=== PATIENT | male | born 1955 | race Caucasian/White ===

== ENCOUNTER 2022-11-17 12:42 | Emergency (ER) | payer MEDICARE, OTHER ==
[~2022-11-17] VITALS: Ht 185.4 cm; Wt 90.7 kg
--- NOTE | 2022-11-17 12:54 | NUR ---
CALLED FOR TRIAGE, TOLD HE WENT BACK TO HIS CAR
[2022-11-17 13:02] VITALS: BP 102/62; TEMP 98.3
[2022-11-17] MEDS ORDERED: CARB15DR12 EACH EAR (13:52)
[2022-11-17 14:03] VITALS: O2SAT 99
--- NOTE | 2022-11-17 14:04 | NUR ---
Patient discharged to home in stable condition. Written and verbal after care instructions given. Patient verbalizes understanding of instruction.
== END 2022-11-17 14:05 | disposition home or self-care (01) ==
LOC: ER 13:04
DX: H61.23 Impacted cerumen, bilateral (principal); I25.2 Old myocardial infarction